=== PATIENT | male | born 2000 | race Caucasian/White ===

== ENCOUNTER 2022-12-03 17:32 | Emergency (ER) | payer OTHER, SELFPAY ==
[2022-12-03 17:36] VITALS: BP 132/77; PULSE 87; RESP 18; TEMP 37.2; O2SAT 98
--- NOTE | 2022-12-03 17:43 | XR_ITS ---
The [address] [address] Patient Name: CRIS BUENROSTRO MRN: [id number] date: 2000 Sex: M Assigned Patient Location: ER Current Patient Location: ED.MAIN Accession/Order Number: [id number] Exam Date: 12/03/2022 18:01 Report Date: 12/03/2022 18:29 At the request of: ANGELINA DWYER Procedure: XR chest 2V EXAM: XR chest 2V HISTORY: Redness of breath. COMPARISON: None. TECHNIQUE: Frontal and lateral chest FINDINGS: Heart and vascularity are unremarkable. Lungs are free of focal infiltrates. No acute bony abnormality is appreciated. XR/XR chest 2V IMPRESSION: No acute heart or lung disease identified. Electronically authenticated by: DAVID BLACK Date: 12/03/2022 18:29
--- NOTE | 2022-12-03 17:57 | ED.GENADUL1 ---
HPI - General Adult General Chief complaint: Shortness of Breath/Dyspnea Stated complaint: SHORTNESS OF BREATH Time Seen by Provider: 12/03/22 17:42 Source: patient Mode of arrival: walk-in Limitations: no limitations History of Present Illness HPI narrative: patient is a 21-year-old male who presents to this emergency department for evaluation of exertional dyspnea and occasional wheezing. Patient states for the last two days he has had cough, chest congestion and sputum production with coughing. He was seen at [facility] yesterday and started on azithromycin and Medrol Dosepak. He states today when he was talking he felt winded and heard himself wheezing. He reports some discomfort with coughing. No fevers or hemoptysis. No vomiting. Related Data Previous Rx's Medication Instructions Recorded albuterol sulfate 90 mcg/actuation 2 inh inhalation Q4H PRN shortness 12/03/22 aerosol inhaler of breath or wheezing #8.5 grams Allergies Allergy/AdvReac Type Severity Reaction Status Date / Time No Known Drug Allergies Allergy Verified 12/03/22 17:42 Review of Systems ROS Constitutional Denies: fever or chills Ears, nose, mouth, and throat Denies: throat pain or neck pain Cardiovascular Denies: chest pain Respiratory Reports: shortness of breath and cough Gastrointestinal Denies: nausea or vomiting Musculoskeletal Denies: back pain Integumentary/Breast Denies: rash Neurological Denies: headache Exam Narrative Exam Narrative: Gen.: Awake, alert, in no distress Head: Normocephalic, atraumatic ENT: Moist mucous membranes Respiratory: No respiratory distress, lungs clear bilaterally; patient is speaking and breathing easily Cardio: Regular rate and rhythm Extremities: Moves extremities equally, no injuries noted Psych: Normal mood and affect Neuro: No focal neuro deficit Skin: Warm, dry, intact Constitutional Vital Signs, click to edit/add: Last Vital Signs Temp 98.9 F 12/03/22 17:36 Pulse 87 12/03/22 17:36 Resp 18 12/03/22 17:36 BP 132/77 H 12/03/22 17:36 Pulse Ox 98 12/03/22 17:36 O2 Del Method Room Air 12/03/22 17:36 Course Vital Signs Vital signs: Vital Signs Temperature 98.9 F 12/03/22 17:36 Pulse Rate 87 12/03/22 17:36 Respiratory Rate 18 07/17/23 17:36 Blood Pressure 132/77 H 12/03/22 17:36 Pulse Oximetry 98 12/03/22 17:36 Oxygen Delivery Method Room Air 12/03/22 17:36 Temperature 98.9 F 12/03/22 17:36 Pulse Rate 87 12/03/22 17:36 Respiratory Rate 18 12/03/22 17:36 Blood Pressure 132/77 H 12/03/22 17:36 Pulse Oximetry 98 12/03/22 17:36 Oxygen Delivery Method Room Air 12/03/22 17:36 Medical Decision Making MDM Narrative Medical decision making narrative: two-view chest x-ray with no acute cardio pulmonary changes. Patient was stable vital signs, no tachycardia, fever or hypoxia. He was given education and reassurance that he will likely not feel well for up to 7-10 days with bronchitis. He is given an albuterol inhaler prescription for home, he is instructed to continue the azithromycin and steroids. Return to the Emergency Room if symptoms change or worsen. Medical Records Medical records reviewed: Yes I reviewed the patient's medical records Imaging Data Chest x-ray: Attestation: I personally reviewed and interpreted this imaging study as follows: My impression: two-view chest x-ray: No acute cardiopulmonary changes, no infiltrate, normal heart size Discharge Plan Discharge Chief Complaint: Shortness of Breath/Dyspnea Clinical Impression: Bronchitis Patient Disposition: Home, Self-Care Time of Disposition Decision: 18:23 Condition: Good Prescriptions / Home Meds: New albuterol sulfate 90 mcg/actuation HFA aerosol inhaler 2 inh inhalation Q4H PRN (Reason: shortness of breath or wheezing) Qty: 8.5 0RF Instructions: Acute Bronchitis (ED) Stand Alone Forms: Portal Instructions Referrals: Physician,Non-Staff, MD [Primary Care Provider] - 1 week
== END 2022-12-03 18:31 | disposition home or self-care (01) ==
PROVIDERS: Emergency Provider Emergency Medicine; Family Provider Family Medicine
DX: J40 Bronchitis, not specified as acute or chronic (principal)
CPT/HCPCS: 71046; 99283